=== PATIENT | female | born 1945 ===

== ENCOUNTER 2021-05-05 11:00 | Inpatient (IN) | payer OTHER ==
[~2021-05-05] VITALS: Ht 152.4 cm; Wt 88.9 kg
[2021-05-10] MEDS ORDERED: OXYC1TAB9 PO (06:23)
[2021-05-10] MEDS ORDERED: BACTRIM DS TAB1 EACH PO (06:23)
[2021-05-10] MEDS ORDERED: XARELTO10 MG PO (06:23)
[2021-05-10] MEDS ORDERED: INTEGRA PLUS C1 EACH PO (06:23)
== END 2021-05-10 14:23 | DRG 470 ==
LOC: ADM 11:00 → O/R 05-08 08:47 → SURG 05-08 08:47 → CIR.AMB 05-08 11:00 → SURH 05-08 11:00 → EDSTATUS 05-08 11:00 → SURG 05-08 15:35 → SURH 05-08 17:00 → SURG 05-10 14:23
PROVIDERS: ADMIT Orthopaedic Surgery Sports Medicine; ATTEND Orthopaedic Surgery Sports Medicine
PROC: 0SRC0J9 Replacement of Right Knee Joint with Synthetic Substitute, Cemented, Open Approach (ICD-10-PCS; principal; 2021-05-08 17:00)
DX: M17.11 Unilateral primary osteoarthritis, right knee (principal)